=== PATIENT | male | born 2000 | race Caucasian/White ===

== ENCOUNTER 2019-03-02 11:36 | Emergency (ER) | payer BC ==
[~2019-03-02] VITALS: Ht 177.8 cm; Wt 84.1 kg
[2019-03-02 11:45] VITALS: BP 114/68
[2019-03-02 13:33] VITALS: TEMP 99.2
[2019-03-02 13:35] VITALS: PULSE 86
[2019-03-02 13:57] LABS: STREP SCREEN NEGATIVE
== END 2019-03-02 13:35 | disposition home or self-care (01) ==
LOC: COL.ER 11:36
PROVIDERS: Physician Assistant
DX: J11.1 Influenza due to unidentified influenza virus with other respiratory manifestations (principal)

== ENCOUNTER 2020-11-22 17:28 | Emergency (ER) | payer BC ==
[~2020-11-22] VITALS: Ht 177.8 cm; Wt 84.1 kg
[2020-11-22 17:47] VITALS: TEMP 98
[2020-11-22] MEDS ORDERED: FLEXERIL 1010 MG/TAB PO (18:39)
[2020-11-22 18:45] VITALS: BP 122/84; PULSE 81
== END 2020-11-22 18:45 | disposition home or self-care (01) ==
LOC: COL.ER 17:28
DX: M54.5 Low back pain (principal)